=== PATIENT | male | born 1950 | race Caucasian/White ===

== ENCOUNTER 2017-05-19 11:16 | Day surgery (SDC) | payer OTHER ==
[2017-05-19] MEDS ORDERED: LACTATED RINGERS 1,000 ML IV ONE ×2 (11:35→13:02)
[2017-05-19] MEDS ORDERED: fentaNYL 100 MCG/2 ML VIAL IVP ONE (12:30)
[2017-05-19] MEDS ORDERED: MIDAZOLAM 2 MG/2 ML VIAL IVP ONE (12:30)
[2017-05-19 13:26] VITALS: BP 97/53
== END 2017-05-19 11:17 | disposition home or self-care (01) ==
LOC: SDS 11:16
PROVIDERS: ATTEND Surgery
PROC: 0DJD8ZZ Inspection of Lower Intestinal Tract, Via Natural or Artificial Opening Endoscopic (ICD-10-PCS; principal; 2017-05-19 12:45)
DX: Z12.11 Encounter for screening for malignant neoplasm of colon (principal); K21.9 Gastro-esophageal reflux disease without esophagitis
CPT/HCPCS: G0121; J7120

== ENCOUNTER 2021-03-08 14:12 | Outpatient (CLI) | payer BC ==
[2021-03-08 20:38] LABS: ALBUMIN 4.4 g/dL (3.2-5.5); ALBUMIN/GLOBULIN RATIO 1.6 (1.0-2.2); ALKALINE PHOSPHATASE 85 IU/L (42-121); ALT ALANINE AMINOTRANSFERASE 32 IU/L (10-60); AST ASPARTATE AMINOTRANSFERASE 23 IU/L (10-42); BILIRUBIN,TOTAL 1.4 mg/dL (0.2-1.0); BUN - BLOOD UREA NITROGEN 18 mg/dL (6-20); CARBON DIOXIDE - CO2 25 mmol/L (21-32); CHLORIDE 98 mmol/L (101-111); CHOL/HDL RATIO 3.5 (<5.0); CHOLESTEROL 216 mg/dL; GFR - MDRD 74 (>89); GLUCOSE 78 mg/dL (70-100); HDL CHOLESTEROL 61 mg/dL; LDL CHOLESTEROL,CALCULATED 143 mg/dL; LDL/HDL RATIO 2.3 (<3.6); POTASSIUM 3.9 mmol/L (3.5-5.0); SODIUM 132 mmol/L (135-145); TOTAL PROTEIN 7.2 g/dL (6.7-8.2); TRIGLYCERIDES 58 mg/dL; VLDL CHOLESTEROL 12 mg/dL
== END 2021-03-08 14:13 | disposition home or self-care (01) ==
LOC: LAB.S 14:12
PROVIDERS: ATTEND Family Medicine
DX: N40.1 Benign prostatic hyperplasia with lower urinary tract symptoms (principal); Z13.6 Encounter for screening for cardiovascular disorders
CPT/HCPCS: 36415; 80053; 80061; 83721; 84153

== ENCOUNTER 2021-08-07 12:04 | Outpatient (CLI) | payer BC ==
--- NOTE | 2021-08-07 14:10 | XRAY Report ---
PROCEDURE: Shoulder 3 View RT INDICATIONS: PAIN IN RIGHT SHOULDER TECHNIQUE: 4 views of the shoulder were acquired. COMPARISON: None. FINDINGS: Bones: Question acromion fracture of scapula. No suspicious bony lesions. Visualized ribs appear int act. Soft tissues: No suspicious soft tissue calcifications. IMPRESSION: Question acromion fracture of scapula. Consider nonemergent shoulder MRI. Reviewed by: Jethro Franklin MD on 08/07/2021 2:09 PM PST Approved by: Jethro Franklin MD on 08/07/2021 2:09 PM [facility] [place] Station ID: [id number]
== END 2021-08-07 12:05 | disposition home or self-care (01) ==
LOC: DI.S 12:04
PROVIDERS: ATTEND Physician Assistant
DX: M25.511 Pain in right shoulder (principal)